=== PATIENT | male | born 1945 | race African-American/Black ===

== ENCOUNTER → 2017-08-30 | Outpatient (CLI) | payer MEDICARE, OTHER ==
[~2017-08-30] MED LIST: CARAFATE1 GM PO; LEVOTHYROXINE0.05 MG PO; LISINOPRIL/HCTZ1 TA1 PO; LOW DOSE ASPIRI81 MG PO; MULTI VITAMINS1 TAB PO; NORVASC5 MG PO; OMEGA-31000 MG PO; PRAVASTATIN40 MG PO; PROTONIX40 M1 PO; ZETIA 10MG TAB10 MG PO; ZOCOR10 MG PO
== END ==
LOC: COL.VAS 12:15
DX: E05.90 Thyrotoxicosis, unspecified without thyrotoxic crisis or storm (principal); I08.3 Combined rheumatic disorders of mitral, aortic and tricuspid valves

== ENCOUNTER → 2018-10-31 | Outpatient (CLI) | payer MEDICARE, OTHER | LOC: COL.VAS 07:30 | DX: M79.661 Pain in right lower leg (principal); M79.662 Pain in left lower leg ==

== ENCOUNTER → 2019-11-11 | Outpatient (CLI) | payer MEDICARE, OTHER | LOC: COL.VAS 10:27 | DX: I35.0 Nonrheumatic aortic (valve) stenosis (principal) ==

== ENCOUNTER → 2021-11-10 | Outpatient (CLI) | payer MEDICARE, OTHER | LOC: COL.VAS 14:16 | DX: I35.0 Nonrheumatic aortic (valve) stenosis (principal) ==